=== PATIENT | female | born 1980 | race Caucasian/White ===

== ENCOUNTER 2019-06-23 09:48 | Outpatient (RCR) | payer BC, SELFPAY | END 2019-07-19 00:01 | LOC: WOUND 09:48 | PROVIDERS: Family Provider Nurse Practitioner; Visit Provider Surgery | DX: Z09 Encounter for follow-up examination after completed treatment for conditions other than malignant neoplasm (principal) ==

== ENCOUNTER → 2019-09-01 11:09 | Outpatient (BNVA) | payer BC, SELFPAY | PROVIDERS: Family Provider Nurse Practitioner; PCP Nurse Practitioner; Visit Provider Nurse Practitioner Psychiatric/Mental Health | DX: F90.0 Attention-deficit hyperactivity disorder, predominantly inattentive type (principal); F33.42 Major depressive disorder, recurrent, in full remission | CPT/HCPCS: 99213 ==

== ENCOUNTER → 2019-10-14 12:46 | Outpatient (BNVA) | payer BC, SELFPAY | PROVIDERS: Family Provider Nurse Practitioner; PCP Nurse Practitioner; Visit Provider Obstetrics & Gynecology | DX: N92.1 Excessive and frequent menstruation with irregular cycle (principal) | CPT/HCPCS: 84146; 84439; 84443 ==

== ENCOUNTER → 2019-11-29 07:55 | Outpatient (BNVA) | payer BC, SELFPAY | PROVIDERS: Family Provider Nurse Practitioner; PCP Nurse Practitioner; Visit Provider Nurse Practitioner Psychiatric/Mental Health | DX: F33.42 Major depressive disorder, recurrent, in full remission (principal); F90.0 Attention-deficit hyperactivity disorder, predominantly inattentive type | CPT/HCPCS: 99212 ==

== ENCOUNTER → 2020-01-09 19:21 | Outpatient (BNVA) | payer BC, SELFPAY | PROVIDERS: Family Provider Nurse Practitioner; PCP Nurse Practitioner; Visit Provider Nurse Practitioner Family | DX: N89.8 Other specified noninflammatory disorders of vagina (principal) | CPT/HCPCS: 87491; 87591; 87661 ==

== ENCOUNTER → 2020-01-17 18:31 | Outpatient (BNVA) | payer BC, SELFPAY | PROVIDERS: Family Provider Nurse Practitioner; PCP Nurse Practitioner; Visit Provider Nurse Practitioner | DX: Z20.2 Contact with and (suspected) exposure to infections with a predominantly sexual mode of transmission (principal) | CPT/HCPCS: 87491; 87591 ==

== ENCOUNTER → 2020-01-18 09:51 | Outpatient (BNVA) | payer BC, SELFPAY | PROVIDERS: Family Provider Nurse Practitioner; PCP Nurse Practitioner; Visit Provider Family Medicine | DX: Z13.6 Encounter for screening for cardiovascular disorders (principal) | CPT/HCPCS: 80053; 80061; 85025 ==

== ENCOUNTER → 2020-02-23 09:30 | Outpatient (BNVA) | payer BC, SELFPAY | PROVIDERS: Family Provider Nurse Practitioner; PCP Nurse Practitioner; Visit Provider Nurse Practitioner Psychiatric/Mental Health | DX: F33.42 Major depressive disorder, recurrent, in full remission (principal); F90.0 Attention-deficit hyperactivity disorder, predominantly inattentive type | CPT/HCPCS: G0463 ==

== ENCOUNTER → 2020-04-06 10:11 | Outpatient (BNVA) | payer BC, SELFPAY | PROVIDERS: Family Provider Nurse Practitioner; PCP Nurse Practitioner; Visit Provider Obstetrics & Gynecology | DX: Z12.4 Encounter for screening for malignant neoplasm of cervix (principal) | CPT/HCPCS: 88175 ==

== ENCOUNTER 2020-05-03 11:28 | Outpatient (CLI) | payer BC, SELFPAY ==
--- NOTE | 2020-05-03 11:36 | XR_ITS ---
WS: [id number] SHOULDER LEFT TECHNIQUE: 3 views of the left shoulder CLINICAL INFORMATION: chronic left shoulder pain COMPARISON: None. FINDINGS: Normal acromioclavicular joint. Normal glenohumeral joint. Acromion is normal in appearance. Normal g lenoid. No evidence of acute fracture dislocation. XR/XR shoulder LT min 2V* [id number] IMPRESSION: Normal left shoulder.
== END 2020-05-03 11:29 | disposition home or self-care (01) ==
PROVIDERS: Family Provider Family Medicine; PCP Family Medicine; Visit Provider Family Medicine
DX: M25.512 Pain in left shoulder (principal); G89.29 Other chronic pain; M79.641 Pain in right hand; M79.642 Pain in left hand
CPT/HCPCS: 73030; 80053; 85025; 85651; 86038; 86140; 86431

== ENCOUNTER → 2020-05-28 07:59 | Outpatient (BNVA) | payer BC, SELFPAY | PROVIDERS: Family Provider Family Medicine; PCP Family Medicine; Visit Provider Nurse Practitioner Psychiatric/Mental Health | DX: F33.42 Major depressive disorder, recurrent, in full remission (principal); F90.0 Attention-deficit hyperactivity disorder, predominantly inattentive type | CPT/HCPCS: G0463 ==

== ENCOUNTER → 2020-06-25 14:08 | Outpatient (BNVA) | payer BC, SELFPAY | PROVIDERS: Family Provider Family Medicine; PCP Family Medicine; Visit Provider Internal Medicine | DX: M79.641 Pain in right hand (principal); M79.642 Pain in left hand; Z11.59 Encounter for screening for other viral diseases; Z79.899 Other long term (current) drug therapy | CPT/HCPCS: 99204 ==

== ENCOUNTER 2020-06-25 15:16 | Outpatient (CLI) | payer BC, SELFPAY ==
--- NOTE | 2020-06-25 15:47 | XRR_ITS ---
PROCEDURE INFORMATION: Exam: XR Left Hand Exam date and time: 06/25/2020 3:47 PM Age: 40 years old Clinical indication: Pain; Hand; Bilateral; Additional info: M79.643 - pain in unspecified hand TECHNIQUE: Imaging protocol: XR Left hand. Views: 3 or more views. COMPARISON: No relevant prior studies available. FINDINGS: Bones/joints: Negative for acute bony abnormality. Soft tissues: Normal. XR/XR hand LT 2V [id number] IMPRESSION: No acute findings.
--- NOTE | 2020-06-25 15:47 | XRR_ITS ---
PROCEDURE INFORMATION: Exam: XR Right Elbow Exam date and time: 06/25/2020 3:47 PM Age: 40 years old Clinical indication: Pain; Elbow; Right; Additional info: M79.643 - pain in unspecified hand TECHNIQUE: Imaging protocol: XR Right elbow. Views: 1 or 2 views. COMPARISON: No relevant prior studies available. FINDINGS: Bones/joints: There is dislocation and subluxation of the elbow joint. No acute fractures are seen. Soft tissues: Unremarkable XR/XR elbow RT 2V [id number] IMPRESSION: Dislocation and subluxation of the right elbow joint.
--- NOTE | 2020-06-25 15:47 | XRR_ITS ---
PROCEDURE INFORMATION: Exam: XR Right Hand Exam date and time: 06/25/2020 3:47 PM Age: 40 years old Clinical indication: Pain; Hand; Bilateral; Additional info: M79.643 - pain in unspecified hand TECHNIQUE: Imaging protocol: XR Right hand. Views: 1 or 2 views. COMPARISON: No relevant prior studies available. FINDINGS: Bones/joints: Negative for acute bony abnormality. Soft tissues: Normal. XR/XR hand RT 2V [id number] IMPRESSION: No acute findings.
== END 2020-06-25 15:17 | disposition home or self-care (01) ==
PROVIDERS: PCP Family Medicine; Visit Provider Internal Medicine
DX: M79.643 Pain in unspecified hand (principal); S53.101A Unspecified subluxation of right ulnohumeral joint, initial encounter; X58.XXXA Exposure to other specified factors, initial encounter
CPT/HCPCS: 36415; 73070; 73120; 82306; 82728; 83540; 84100; 86704; 86803; 86812; 87340

== ENCOUNTER → 2020-07-25 10:45 | Outpatient (BNVA) | payer BC, SELFPAY | PROVIDERS: PCP Family Medicine; Visit Provider Internal Medicine | DX: M79.641 Pain in right hand (principal); M79.642 Pain in left hand; R76.8 Other specified abnormal immunological findings in serum; S53.106A Unspecified dislocation of unspecified ulnohumeral joint, initial encounter; Y93.9 Activity, unspecified | CPT/HCPCS: 99213; 99214 ==

== ENCOUNTER → 2020-08-23 08:58 | Outpatient (BNVA) | payer BC, SELFPAY | PROVIDERS: PCP Family Medicine; Visit Provider Nurse Practitioner Psychiatric/Mental Health | DX: F33.42 Major depressive disorder, recurrent, in full remission (principal); F90.0 Attention-deficit hyperactivity disorder, predominantly inattentive type | CPT/HCPCS: 99213 ==

== ENCOUNTER → 2020-12-10 08:37 | Outpatient (BNVA) | payer BC, SELFPAY | PROVIDERS: PCP Family Medicine; Visit Provider Nurse Practitioner Psychiatric/Mental Health | DX: F33.42 Major depressive disorder, recurrent, in full remission (principal); F90.0 Attention-deficit hyperactivity disorder, predominantly inattentive type | CPT/HCPCS: 99213 ==

== ENCOUNTER → 2021-04-26 11:56 | Outpatient (BNVA) | payer BC, SELFPAY | PROVIDERS: PCP Family Medicine; Visit Provider Nurse Practitioner Family | DX: Z20.822 Contact with and (suspected) exposure to COVID-19 (principal) | CPT/HCPCS: 87426 ==

== ENCOUNTER 2021-04-29 12:53 | Emergency (ER) | payer BC, SELFPAY ==
[2021-04-29 13:19] VITALS: BP 118/76; PULSE 91; RESP 16; TEMP 37.2; O2SAT 97
--- NOTE | 2021-04-29 13:27 | XR_ITS ---
WS: [id number] PORTABLE CHEST HISTORY: COVID COMPARISON: None available. Ill-defined scattered opacifications throughout both lungs. No lobar collapse or dense consolidation. Slight elevation of the RIGHT hemidiaphragm. No pleural effusion or pneumothorax. Cardiac size: Normal. Mediastinum/Aorta: Normal mediastinum. No osseous abnormality seen. XR/XR chest 1V portable [id number] IMPRESSION: Mild scattered opacifications consistent with pneumonitis and Covid 19.
--- NOTE | 2021-04-29 14:33 | W.ED.COVID ---
HPI - COVID General: Chief Complaint: COVID symptoms Stated Complaint: covid, sob Time Seen by Provider: 04/29/21 14:26 Source: patient Mode of arrival: ambulatory Limitations: no limitations Triage information: Has fever, cough or shortness of breath. History of Present Illness: HPI Narrative: Patient is a nice 40-year-old female who presents to ED today stating she was told to come to the ED for a CXR to rule out pneumonia. Patient states she was diagnosed with COVID via a positive home test after having positive exposure approximately a week ago. She is roughly on day 8-9 of symptoms. [facility], albuterol, and steroids. She states she was told to go to urgent care to have a test performed as she would have to have a positive test on file to qualify for [facility]. Patient states she did this on 04/26 and did test positive. She tells me she is continuing to feel short of breath with exertion thus [facility] and [facility] told her to come to the ED for a CXR to rule out pneumonia. Her other COVID symptoms have almost fully resolved. MD complaint: known COVID positive Prior covid testing: yes, results known Prior testing date: 04/26/21 COVID 19 common symptoms: positive dyspnea (with exertion ); negative fever(s), chills, non-productive cough, productive cough, fatigue, body aches, headache(s), throat pain, nasal congestion, nausea, vomiting or diarrhea COVID 19 other sytmptoms: negative chest pain Onset (ago): day(s) Pertinent comorbid conditions: obesity Treatment prior to arrival: antibiotics, steroids and other (albuterol) COVID Results: SARS-CoV-2 Antigen (Rapid) Positive (Negative) H 04/26/21 11:56 04/26/21 Review of Systems Const: Denies: fever(s), chills, body aches, change in appetite, fatigue or malaise Eyes: Denies: change in vision or blurry vision ENMT: Denies: throat pain, odynophagia, nasal discharge or nasal congestion Card: Reports: lightheadedness (states she felt lightheaded in the shower yesterday) and dyspnea on exertion; Denies: chest pain, palpitations, irregular heart rhythm, edema, syncope or orthopnea Resp: Reports: dyspnea (with exertion ); Denies: productive cough, non-productive cough, hemoptysis or chest congestion GI: Denies: abdominal pain, nausea, vomiting or diarrhea Musc: Denies: neck pain, back pain, extremity pain or joint pain Skin/Breast: Denies: rash Neuro: Denies: headache(s), numbness in extremities, weakness in extremities or sensory changes PFS ED PFSH: Medical History (Updated 04/29/21 @ 15:14 by KARMA Rivas) Depression And possibly ADHD diagnosed in her 30s. She follows up with behavioral health care. Does not have a therapist. GERD (gastroesophageal reflux disease) Since her 20s controlled with medication. 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 Cadet PCOS (polycystic ovarian syndrome) Diagnosed in [address] Jurado [facility] Surgical History History of dilation and curettage (04/24/06) Missed . Performed by Dr. Jurado at [facility] in [place], [place]. History of incision and drainage (06/10/19) Right gluteal abscess. Performed by Dr. Shearer at [facility] History of loop electrical excision procedure (LEEP) (~2001) Family History Father Hypertension Hypercholesteremia Mother Hypertension Hypercholesteremia Thyroid disease Grandfather Diabetes maternal Denies family history of Colon cancer Ovarian cancer Heart disease Breast cancer Uterine cancer Stroke Social History Smoking and tobacco status: never smoked Alcohol intake: never Female Reproductive History: Date of last menstrual period: 07/05/19 Physical Exam Const: COMMON NORMALS: no acute distress, patient oriented x3, no limitations and alert GENERAL APPEARANCE: cooperative NUTRITIONAL APPEARANCE: obese ORIENTATION/CONSCIOUSNESS: Yes awake, Yes oriented to person, Yes oriented to place and Yes oriented to time Resp: COMMON NORMALS: normal respiratory effort and clear to auscultation bilaterally AUSCULTATION: clear to auscultation bilaterally Cardio: COMMON NORMALS: regular rate and regular rhythm RATE: regular rate RHYTHM: regular rhythm Neuro: COMMON NORMALS: patient oriented x3 SENSORIUM/ORIENTATION: Yes alert, Yes oriented to person, Yes oriented to place and Yes oriented to time Course Vital Signs: Vital signs: Vital Signs Temperature 99.1 F 04/29/21 15:14 Pulse Rate 88 04/29/21 15:14 Respiratory Rate 17 04/29/21 15:14 Blood Pressure 119/70 04/29/21 15:14 Pulse Oximetry 97 04/29/21 15:14 MDM - COVID MDM Narrative: Medical decision making narrative: Patient clinically is in no acute distress. She is not tachycardic, tachypneic febrile, or hypoxic. Lung sounds are CTA at this time. CXR does show scattered opacifications consistent with COVID-19 pneumonia. She is already on azithromycin, albuterol, and steroids. There is no indication to add any further medications at this time. Urgent care has already set her up for [facility] on Thursday. Unlikely she will get much benefit from this given that her symptoms started a week and a half ago. Return to ED precautions given. Imaging Data: CXR: Radiologist's impression: [place] [id number] [facility].[place], [place] [address]IUts ReportSigned Patient: Bridgett Schulte RUnit #: [id number]: [id number]#:[id number]/Sex: 40 / FADM Date: 04/29/21Loc: ERRoom/Bed:Attending Dr: Ordering Provider/Ordering MD: Marisol Belcher Date of Service: 04/29/21 Procedure(s): XR chest 1V portable [id number] Accession Number(s): [id number] Report Number: [id number] WS: [id number] PORTABLE CHEST HISTORY: COVID COMPARISON: None available. Ill-defined scattered opacifications throughout both lungs. No lobar collapse or dense consolidation. Slight elevation of the RIGHT hemidiaphragm. No pleural effusion or pneumothorax. Cardiac size: Normal. Mediastinum/Aorta: Normal mediastinum. No osseous abnormality seen. XR/XR chest 1V portable [id number] IMPRESSION: Mild scattered opacifications consistent with pneumonitis and Covid 19. Dictated By:Claudette Galindo DOSigned By:Claudette Galindo DOSigned Date/Time:04/29/21 1352DD/ 1352 COVID Results: SARS-CoV-2 Antigen (Rapid) Positive (Negative) H 04/26/21 11:56 04/26/21 Discharge Plan Discharge Patient Disposition: Home Clinical Impression: COVID-19 Condition: Stable Prescriptions: No Action omeprazole 20 mg capsule,delayed release(DR/EC) 20 mg PO DAILY RF: 0 nystatin 100,000 unit/gram powder 1 applic topical BID PRN (Reason: Yeast) Qty: 15 RF: 0 zinc 50 mg tablet 100 mg PO DAILY RF: 0 calcium carbonate-vitamin D3 [Calcium 600 with Vitamin D3] 600 mg(1,500mg) -500 unit capsule 2 cap PO DAILY RF: 0 multivitamin Tablet 1 tab PO DAILY RF: 0 lysine 1,000 mg tablet 1,000 mg PO ONCE RF: 0 Adult Probiotic 3 billion cell capsule 3,000 mmu cells PO ONCE RF: 0 ascorbate calcium (vitamin C) 500 mg tablet 1 gm PO DAILY RF: 0 docusate sodium [Stool Softener] 100 mg capsule 100 mg PO BID PRNRF: 0 magnesium 30 mg tablet 500 mg PO DAILY RF: 0 duloxetine 30 mg capsule,delayed release(DR/EC) 60 mg PO .q am Qty: 60 RF: 1 methylphenidate HCl [Concerta] 27 mg tablet extended release 24hr 27 mg PO QAM 30 Days Qty: 30 RF: 0 methylphenidate HCl [Concerta] 27 mg tablet extended release 24hr 27 mg PO QAM 30 Days Qty: 30 RF: 0 medroxyprogesterone 10 mg tablet 10 mg PO DAILY PRN (Reason: metrorrhagia) Qty: 10 RF: 12 meloxicam 15 mg tablet 15 mg PO DAILY Qty: 30 RF: 2 acyclovir 400 mg tablet 400 mg PO BID Qty: 180 RF: 1 Discharge Orders: Discharge ED (Routine); Ordered 04/29/21 Ordered By: Marisol Belcher Referrals: Melany Cadet DO [Primary Care Provider] - Patient Instructions: COVID-19 (Coronavirus Disease 2019) (ED) Coding Level of Care Code ED [employer] for Helder Roberts
[2021-04-29 15:14] VITALS: BP 119/70; PULSE 88; RESP 17; TEMP 37.3; O2SAT 97
== END 2021-04-29 15:24 | disposition home or self-care (01) ==
PROVIDERS: Emergency Provider Physician Assistant; PCP Family Medicine
DX: U07.1 COVID-19 (principal)
CPT/HCPCS: 71045; 99283

== ENCOUNTER 2021-04-30 09:14 | Inpatient (IN) | payer BC, SELFPAY ==
[2021-04-30] VITALS (11 sets, daily range): BP systolic 91–157; BP diastolic 55–82; PULSE 73–123; RESP 17–22; TEMP 36.7–38.7; O2SAT 90–96; BMI 38.2
--- NOTE | 2021-04-30 12:05 | XR_ITS ---
WS: [id number] XR chest 1V portable [id number] REASON FOR EXAM: worsening COVID symptoms FINDINGS: Compared to the previous examination of 04/29/2021, the extent and density of the bilateral pulmonary infiltrates has increased somewhat. No other interval change or new finding is noted. XR/XR chest 1V portable [id number] IMPRESSION: Mild/moderate degree of worsening of the bilateral pulmonary infiltrates.
--- NOTE | 2021-04-30 12:05 | ED_ITS ---
Documented by User: KARMA Rivas 04/30/21 16:46 HPI - COVID General: Chief Complaint: COVID symptoms Stated Complaint: Fever, Weakness, Fatique, Time Seen by Provider: 04/30/21 09:21 Source: patient Mode of arrival: wheelchair Limitations: no limitations Triage information: Has fever, cough or shortness of breath . No known COVID + exposure last 14 days History of Present Illness: HPI Narrative: Patient is a 40-year-old female who presents to ED today for reevaluation for COVID symptoms. Patient was seen here yesterday and diagnosed with mild viral pneumonia consistent with her COVID diagnosis. Patient was not tachycardic, hypoxic, or febrile at that visit. She states today she ran a fever of 102 yesterday evening and states she almost passed out when she got up and ambulated this morning. She states she checked her oxygen at home and it was in the mid to upper 80s. She states she feels weak. MD complaint: known COVID positive Prior covid testing: yes, results known COVID 19 common symptoms: positive fever(s), dyspnea and fatigue; negative non- productive cough, productive cough, headache(s), throat pain, nasal congestion, nausea, vomiting or diarrhea COVID 19 other sytmptoms: positive other concerning symptoms (weakness); negative chest pain Onset (ago): hour(s) Severity: moderate Pertinent comorbid conditions: obesity Treatment prior to arrival: antibiotics, steroids and other (albuterol) COVID Results: SARS-CoV-2 Antigen (Rapid) Positive (Negative) H 04/26/21 11:56 04/26/21 Review of Systems Const: Reports: fever(s) and fatigue Eyes: Denies: change in vision or blurry vision ENMT: Denies: throat pain, odynophagia, nasal discharge or nasal congestion Card: Reports: lightheadedness, pre-syncope and dyspnea on exertion; Denies: chest pain, palpitations, irregular heart rhythm, edema or swelling of feet/ankles Resp: Reports: dyspnea; Denies: productive cough, non-productive cough, wheezing, hemoptysis or chest congestion GI: Denies: abdominal pain, nausea, vomiting or diarrhea Musc: Denies: neck pain, back pain, extremity pain or joint pain Skin/Breast: Denies: rash Neuro: Denies: headache(s), numbness in extremities, weakness in extremities or sensory changes PFSH ED PFSH: Medical History (Updated 04/30/21 @ 16:46 by KARMA Rivas) Depression And possibly ADHD diagnosed in her 30s. She follows up with behavioral health care. Does not have a therapist. GERD (gastroesophageal reflux disease) Since her 20s controlled with medication. 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 Cadet PCOS (polycystic ovarian syndrome) Diagnosed in [address] Jurado Psychiatric care Surgical History History of dilation and curettage (04/24/06) Missed . Performed by Dr. Jurado at [facility] in [place], [place]. History of incision and drainage (06/10/19) Right gluteal abscess. Performed by Dr. Shearer at [facility] History of loop electrical excision procedure (LEEP) (~2001) Family History Father Hypertension Hypercholesteremia Mother Hypertension Hypercholesteremia Thyroid disease Grandfather Diabetes maternal Denies family history of Colon cancer Ovarian cancer Heart disease Breast cancer Uterine cancer Stroke Social History Smoking and tobacco status: never smoked Alcohol intake: never Female Reproductive History: Date of last menstrual period: 07/05/19 Physical Exam Const: COMMON NORMALS: no acute distress, patient oriented x3, no limitations and alert GENERAL APPEARANCE: cooperative NUTRITIONAL APPEARANCE: obese ORIENTATION/CONSCIOUSNESS: Yes awake, Yes oriented to person, Yes oriented to place and Yes oriented to time OTHER: looks like she doesn't feel well; mildly febrile HENMT: COMMON NORMALS: normocephalic and atraumatic HEAD & SCALP: normocephalic and atraumatic Resp: COMMON NORMALS: normal respiratory effort and clear to auscultation bilaterally AUSCULTATION: clear to auscultation bilaterally Cardio: COMMON NORMALS: regular rhythm RATE: tachycardic RHYTHM: regular rhythm Neuro: LISA COMA SCALE: document GCS findings Dale coma scale eye opening: Spontaneous Dale coma scale verbal response: Orientated Dale coma scale motor response: Obey commands Dale coma scale total score: 15 COMMON NORMALS: patient oriented x3 SENSORIUM/ORIENTATION: Yes alert, Yes oriented to person, Yes oriented to place and Yes oriented to time Skin: COMMON NORMALS: no rashes or lesions noted GENERAL SKIN EXAM: no rashes or lesions noted Course Consultations: Consultation #1: Dr. Gaines-accepts admit to OBS Vital Signs: Vital signs: Vital Signs Temperature 99.5 F 04/30/21 15:53 Pulse Rate 106 H 04/30/21 15:53 Respiratory Rate 20 H 04/30/21 15:53 Blood Pressure 91/58 04/30/21 15:53 Pulse Oximetry 91 04/30/21 15:53 MDM - COVID MDM Narrative: Medical decision making narrative: Patient is a 40-year-old who returns to the ED for reevaluation of COVID symptoms. I saw her myself yesterday. Patient yesterday appeared in no acute distress with normal vital signs. She had mild viral pneumonia and was sent home with recommendations for conservative treatment. Patient returns less than 24 hours with fairly significant worsening of her pneumonia. She arrived today tachycardic and febrile and reporting hypoxia at home with ambulation. She has not required oxygen here. Her labs overall are consistent with her COVID diagnosis but do not appear markedly abnormal. I think given the fact the patient is on day 9 of symptoms and her rapid progression over the past 24 hours, she would most likely benefit from hospitalization. Spoke to hospitalist Dr. Gaines who agrees and recommends admission to obs. Spoke to Dr. Thomas who is also evaluated patient and will place admit orders. Lab Data: Labs: Lab Results 04/30/21 04/30/21 04/30/21 13:53 14:50 14:50 WBC 11.2 10^3/uL H 10 ^3/uL (4.0-10.0) RBC 4.63 10^6/uL 10^6 /uL (4.1-5.3) Hgb 13.7 g/dL g/dL (11.5-15.3) Hct 43.1 % % (37.0-47.0) MCV 93.1 fl fl (81-99) MCH 29.6 pg pg (28.0-34.0) MCHC 31.8 g/dL g/dL (30.0-36.0) RDW 14.2 % % (12.1-15.1) Plt Count 220 10^3/cmm 10^3 /cmm (130-400) MPV 9.7 fL fL (7.4-10.4) Neut % (Auto) 74.2 % % Lymph % (Auto) 19.6 % % Davison % (Auto) 5.7 % % Eos % (Auto) 0.0 % % Baso % (Auto) 0.1 % % Neut # (Auto) 8.31 10^3/uL H 10 ^3/uL (1.8-7.7) Lymph # (Auto) 2.2 10^3/uL 10^3/ uL (0.8-4.8) Davison # (Auto) 0.6 10^3/uL 10^3/ uL (0.2-0.9) Eos # (Auto) 0.0 10^3/uL 10^3/ uL (0.0-0.8) Baso # (Auto) 0.0 10^3/uL 10^3/ uL (0.0-0.1) Nucleated RBC % (a uto) 0 % % Nucleated RBCs # 0.0 /100WBC /100W BC PT 14.60 SECONDS SEC ONDS (12.1-14.9) INR 1.10 (0.8-1.2) APTT 29.9 SECONDS SECO NDS (23.9-36.7) Fibrinogen 693 mg/dL H mg/dL (174-498) D-Dimer 0.39 ug/mIFEU ug/ mIFEU (0-0.59) Specimen Type Arterial Sample Site Brachial, right ABG pH 7.51 H (7.35-7.45) ABG pCO2 29.9 mmHg L mmHg (35-45) ABG pO2 61.5 mmHg L mmHg (80.0-100.0) ABG HCO3 24.0 mmol/L mmol/ L (22-26) ABG Base Excess 1.9 mmol/L mmol/L (-2.0-2.0) Josh Test Pos Hematocrit 43.1 % % (37-47) O2 Delivery Device Room air FiO2 21.0 % % Specimen Drawn By [employer] Enroller ID Bd Sodium Potassium Chloride Carbon Dioxide Anion Gap BUN Creatinine GFR Calculation Glucose Calculated Osmolal ity Lactic Acid Calcium Ferritin Total Bilirubin AST ALT Alkaline Phosphata se C-Reactive Protein NT-Pro-B Natriuret Pep Total Protein Albumin Globulin Procalcitonin HCG, Qual 04/30/21 04/30/21 04/30/21 14:50 14:50 14:50 WBC RBC Hgb Hct MCV MCH MCHC RDW Plt Count MPV Neut % (Auto) Lymph % (Auto) Davison % (Auto) Eos % (Auto) Baso % (Auto) Neut # (Auto) Lymph # (Auto) Davison # (Auto) Eos # (Auto) Baso # (Auto) Nucleated RBC % (a uto) Nucleated RBCs # PT INR APTT Fibrinogen D-Dimer Specimen Type Sample Site ABG pH ABG pCO2 ABG pO2 ABG HCO3 ABG Base Excess Josh Test Hematocrit O2 Delivery Device FiO2 Specimen Drawn By Enroller ID Sodium 136 mmol/L mmol/L (136-145) Potassium 4.3 mmol/L mmol/L (3.5-5.1) Chloride 101 mmol/L mmol/L (98-107) Carbon Dioxide 23 mmol/L mmol/L (22-29) Anion Gap 16.3 (5-19) BUN 17 mg/dL mg/dL (6-20) Creatinine 0.8 mg/dL mg/dL (0.5-0.9) GFR Calculation 79.9 mL/min L mL/ min (90-130) Glucose 101 mg/dL mg/dL (65-115) Calculated Osmolal ity 284 mOsm/kg L mOs m/kg (285-295) Lactic Acid 1.9 mmol/L mmol/L (0.5-2.2) Calcium 8.7 mg/dL mg/dL (8.5-10.5) Ferritin 654 ng/mL H ng/mL (15-150) Total Bilirubin 0.3 mg/dL mg/dL (0.15-1.2) AST 34 U/L H U/L (0-32) ALT 33 U/L U/L (0-33) Alkaline Phosphata se 76 IU/L IU/L (35-105) C-Reactive Protein 111.5 mg/L H mg/L (0.0-4.9) NT-Pro-B Natriuret Pep 246 pg/mL H pg/mL (0-125) Total Protein 7.4 g/dL g/dL (6.6-8.7) Albumin 3.6 g/dL g/dL (3.5-5.2) Globulin 3.8 g/dL g/dL (1.3-4.6) Procalcitonin 0.63 ng/mL H ng/m L (0-0.5) HCG, Qual Negative (Negative) Imaging Data: CXR: Radiologist's impression: [address] [address] XRay Report Signed Patient: Bridgett Schulte Unit #: [id number] : 1980 Age/Sex: 40 / F ADM Date: 04/30/21 Loc: ER Room/Bed: Attending Dr: Ordering Provider/Ordering MD: Marisol Belcher Date of Service: 04/30/21 Procedure(s): XR chest 1V portable [id number] Accession Number(s): [id number] Report Number: [id number] WS: [id number] XR chest 1V portable [id number] REASON FOR EXAM: worsening COVID symptoms FINDINGS: Compared to the previous examination of 04/29/2021, the extent and density of the bilateral pulmonary infiltrates has increased somewhat. No other interval change or new finding is noted. XR/XR chest 1V portable [id number] IMPRESSION: Mild/moderate degree of worsening of the bilateral pulmonary infiltrates. Dictated By: Musa Chauhan Jr, MD Signed By: Musa Chauhan Jr, MD Signed Date/Time: 04/30/21 1236 DD/ 1234 COVID Results: SARS-CoV-2 Antigen (Rapid) Positive (Negative) H 04/26/21 11:56 04/26/21 Discharge Plan Discharge Patient Disposition: Placed in Observation Clinical Impression: Pneumonia due to 2019-nCoV Condition: Stable Prescriptions: No Action omeprazole 20 mg capsule,delayed release(DR/EC) 20 mg PO DAILY RF: 0 nystatin 100,000 unit/gram powder 1 applic topical BID PRN (Reason: Yeast) Qty: 15 RF: 0 zinc 50 mg tablet 100 mg PO DAILY RF: 0 calcium carbonate-vitamin D3 [Calcium 600 with Vitamin D3] 600 mg(1,500mg) - 500 unit capsule 2 cap PO DAILY RF: 0 multivitamin Tablet 1 tab PO DAILY RF: 0 lysine 1,000 mg tablet 1,000 mg PO ONCE RF: 0 Adult Probiotic 3 billion cell capsule 3,000 mmu cells PO ONCE RF: 0 ascorbate calcium (vitamin C) 500 mg tablet 1 gm PO DAILY RF: 0 docusate sodium [Stool Softener] 100 mg capsule 100 mg PO BID PRNRF: 0 magnesium 30 mg tablet 500 mg PO DAILY RF: 0 duloxetine 30 mg capsule,delayed release(DR/EC) 60 mg PO .q am Qty: 60 RF: 1 methylphenidate HCl [Concerta] 27 mg tablet extended release 24hr 27 mg PO QAM 30 Days Qty: 30 RF: 0 methylphenidate HCl [Concerta] 27 mg tablet extended release 24hr 27 mg PO QAM 30 Days Qty: 30 RF: 0 medroxyprogesterone 10 mg tablet 10 mg PO DAILY PRN (Reason: metrorrhagia) Qty: 10 RF: 12 meloxicam 15 mg tablet 15 mg PO DAILY Qty: 30 RF: 2 acyclovir 400 mg tablet 400 mg PO BID Qty: 180 RF: 1 Referrals: Melany Cadet DO [Primary Care Provider] - Patient Instructions: Opioid Safety Coding Level of Care Code ED Behavioral Health Technician for Chg Fwd Exam Detailed Documented by User: Deon Thomas DO 04/30/21 16:45 HPI - COVID General: Chief Complaint: COVID symptoms Stated Complaint: Fever, Weakness, Fatique, Time Seen by Provider: 04/30/21 09:21 COVID Results: SARS-CoV-2 Antigen (Rapid) Positive (Negative) H 04/26/21 11:56 04/26/21 PFS ED PFSH: Medical History (Updated 04/30/21 @ 16:46 by KARMA Rivas) Depression And possibly ADHD diagnosed in her 30s. She follows up with behavioral health care. Does not have a therapist. GERD (gastroesophageal reflux disease) Since her 20s controlled with medication. 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 Cadet PCOS (polycystic ovarian syndrome) Diagnosed in [address] Jurado Psychiatric care Surgical History History of dilation and curettage (04/24/06) Missed . Performed by Dr. Jurado at [facility] in [place], [place] History of incision and drainage (06/10/19) Right gluteal abscess. Performed by Dr. Shearer at [facility] History of loop electrical excision procedure (LEEP) (~2001) Family History Father Hypertension Hypercholesteremia Mother Hypertension Hypercholesteremia Thyroid disease Grandfather Diabetes maternal Denies family history of Colon cancer Ovarian cancer Heart disease Breast cancer Uterine cancer Stroke Social History Smoking and tobacco status: never smoked Alcohol intake: never Course Vital Signs: Vital signs: Vital Signs Temperature 99.5 F 04/30/21 15:53 Pulse Rate 106 H 04/30/21 15:53 Respiratory Rate 20 H 04/30/21 15:53 Blood Pressure 91/58 04/30/21 15:53 Pulse Oximetry 91 04/30/21 15:53 MDM - COVID MDM Narrative: Medical decision making narrative: Reviewed discussed case with Marisol Belcher. Agree with assessment and plan. Patient has shown progression of her disease. She does have fairly significant risk factors with her obesity. She is on day 8. She has D satting in the department with activity. Working to go ahead and put her on observation orders are written. Lab Data: Labs: Lab Results 04/30/21 04/30/21 04/30/21 13:53 14:50 14:50 WBC 11.2 10^3/uL H 10 ^3/uL (4.0-10.0) RBC 4.63 10^6/uL 10^6 /uL (4.1-5.3) Hgb 13.7 g/dL g/dL (11.5-15.3) Hct 43.1 % % (37.0-47.0) MCV 93.1 fl fl (81-99) MCH 29.6 pg pg (28.0-34.0) MCHC 31.8 g/dL g/dL (30.0-36.0) RDW 14.2 % % (12.1-15.1) Plt Count 220 10^3/cmm 10^3 /cmm (130-400) MPV 9.7 fL fL (7.4-10.4) Neut % (Auto) 74.2 % % Lymph % (Auto) 19.6 % % Davison % (Auto) 5.7 % % Eos % (Auto) 0.0 % % Baso % (Auto) 0.1 % % Neut # (Auto) 8.31 10^3/uL H 10 ^3/uL (1.8-7.7) Lymph # (Auto) 2.2 10^3/uL 10^3/ uL (0.8-4.8) Davison # (Auto) 0.6 10^3/uL 10^3/ uL (0.2-0.9) Eos # (Auto) 0.0 10^3/uL 10^3/ uL (0.0-0.8) Baso # (Auto) 0.0 10^3/uL 10^3/ uL (0.0-0.1) Nucleated RBC % (a uto) 0 % % Nucleated RBCs # 0.0 /100WBC /100W BC PT 14.60 SECONDS SEC ONDS (12.1-14.9) INR 1.10 (0.8-1.2) APTT 29.9 SECONDS SECO NDS (23.9-36.7) Fibrinogen 693 mg/dL H mg/dL (174-498) D-Dimer 0.39 ug/mIFEU ug/ mIFEU (0-0.59) Specimen Type Arterial Sample Site Brachial, right ABG pH 7.51 H (7.35-7.45) ABG pCO2 29.9 mmHg L mmHg (35-45) ABG pO2 61.5 mmHg L mmHg (80.0-100.0) ABG HCO3 24.0 mmol/L mmol/ L (22-26) ABG Base Excess 1.9 mmol/L mmol/L (-2.0-2.0) Josh Test Pos Hematocrit 43.1 % % (37-47) O2 Delivery Device Room air FiO2 21.0 % % Specimen Drawn By [employer] Enroller ID Bd Sodium Potassium Chloride Carbon Dioxide Anion Gap BUN Creatinine GFR Calculation Glucose Calculated Osmolal ity Lactic Acid Calcium Ferritin Total Bilirubin AST ALT Alkaline Phosphata se C-Reactive Protein NT-Pro-B Natriuret Pep Total Protein Albumin Globulin Procalcitonin HCG, Qual 04/30/21 04/30/21 04/30/21 14:50 14:50 14:50 WBC RBC Hgb Hct MCV MCH MCHC RDW Plt Count MPV Neut % (Auto) Lymph % (Auto) Davison % (Auto) Eos % (Auto) Baso % (Auto) Neut # (Auto) Lymph # (Auto) Davison # (Auto) Eos # (Auto) Baso # (Auto) Nucleated RBC % (a uto) Nucleated RBCs # PT INR APTT Fibrinogen D-Dimer Specimen Type Sample Site ABG pH ABG pCO2 ABG pO2 ABG HCO3 ABG Base Excess Josh Test Hematocrit O2 Delivery Device FiO2 Specimen Drawn By Enroller ID Sodium 136 mmol/L mmol/L (136-145) Potassium 4.3 mmol/L mmol/L (3.5-5.1) Chloride 101 mmol/L mmol/L (98-107) Carbon Dioxide 23 mmol/L mmol/L (22-29) Anion Gap 16.3 (5-19) BUN 17 mg/dL mg/dL (6-20) Creatinine 0.8 mg/dL mg/dL (0.5-0.9) GFR Calculation 79.9 mL/min L mL/ min (90-130) Glucose 101 mg/dL mg/dL (65-115) Calculated Osmolal ity 284 mOsm/kg L mOs m/kg (285-295) Lactic Acid 1.9 mmol/L mmol/L (0.5-2.2) Calcium 8.7 mg/dL mg/dL (8.5-10.5) Ferritin 654 ng/mL H ng/mL (15-150) Total Bilirubin 0.3 mg/dL mg/dL (0.15-1.2) AST 34 U/L H U/L (0-32) ALT 33 U/L U/L (0-33) Alkaline Phosphata se 76 IU/L IU/L (35-105) C-Reactive Protein 111.5 mg/L H mg/L (0.0-4.9) NT-Pro-B Natriuret Pep 246 pg/mL H pg/mL (0-125) Total Protein 7.4 g/dL g/dL (6.6-8.7) Albumin 3.6 g/dL g/dL (3.5-5.2) Globulin 3.8 g/dL g/dL (1.3-4.6) Procalcitonin 0.63 ng/mL H ng/m L (0-0.5) HCG, Qual Negative (Negative) COVID Results: SARS-CoV-2 Antigen (Rapid) Positive (Negative) H 04/26/21 11:56 04/26/21 Discharge Plan Discharge Patient Disposition: Placed in Observation Clinical Impression: Pneumonia due to 2019-nCoV Condition: Stable Prescriptions: No Action omeprazole 20 mg capsule,delayed release(DR/EC) 20 mg PO DAILY RF: 0 nystatin 100,000 unit/gram powder 1 applic topical BID PRN (Reason: Yeast) Qty: 15 RF: 0 zinc 50 mg tablet 100 mg PO DAILY RF: 0 calcium carbonate-vitamin D3 [Calcium 600 with Vitamin D3] 600 mg(1,500mg) - 500 unit capsule 2 cap PO DAILY RF: 0 multivitamin Tablet 1 tab PO DAILY RF: 0 lysine 1,000 mg tablet 1,000 mg PO ONCE RF: 0 Adult Probiotic 3 billion cell capsule 3,000 mmu cells PO ONCE RF: 0 ascorbate calcium (vitamin C) 500 mg tablet 1 gm PO DAILY RF: 0 docusate sodium [Stool Softener] 100 mg capsule 100 mg PO BID PRNRF: 0 magnesium 30 mg tablet 500 mg PO DAILY RF: 0 duloxetine 30 mg capsule,delayed release(DR/EC) 60 mg PO .q am Qty: 60 RF: 1 methylphenidate HCl [Concerta] 27 mg tablet extended release 24hr 27 mg PO QAM 30 Days Qty: 30 RF: 0 methylphenidate HCl [Concerta] 27 mg tablet extended release 24hr 27 mg PO QAM 30 Days Qty: 30 RF: 0 medroxyprogesterone 10 mg tablet 10 mg PO DAILY PRN (Reason: metrorrhagia) Qty: 10 RF: 12 meloxicam 15 mg tablet 15 mg PO DAILY Qty: 30 RF: 2 acyclovir 400 mg tablet 400 mg PO BID Qty: 180 RF: 1 Referrals: Melany Cadet DO [Primary Care Provider] - Patient Instructions: Opioid Safety Coding Level of Care Code ED Behavioral Health Technician for Chg Fwd Exam Detailed
--- NOTE | 2021-04-30 12:37 | ECG_ITS ---
[facility] Test Date: 2021-04-30 Pat Name: Bridgett Schulte Department: Room: Gender: Female Prosthetics Technician: : 1980 Requested By: Marisol Belcher Order Number: [id number] Patel MD: Nahed Hutchins M.D. Measurements Intervals [place] Rate: 109 P: 22 [place]: 142 QRS: 0 QRSD: 82 T: 48 QT: 299 QTc: 403 Interpretive Statements SINUS TACHYCARDIA POSSIBLE LEFT ATRIAL ENLARGEMENT [-0.1mV P-WAVE IN V1/V2] POSSIBLE LEFT VENTRICULAR HYPERTROPHY [VOLTAGE CRITERIA PLUS LAE OR QRS WIDENING] No previous ECG available for comparison Electronically Signed On 04-30-2021 22:08:22 CDT by Nahed Hutchins M.D. [email or web address]
[2021-04-30] MEDS: acetaminophen 500 mg Tablet 1000 MG PO (14:00)
[2021-04-30 14:04] LABS: ABG PCO2 29.9 mmHg (35-45); ABG PH Result 7.51 (7.35-7.45); Arterial Blood Gas Hematocrit 43.1 % (37-47); Base Excess ABG 1.9 mmol/L (-2.0-2.0); Blood Gas Allen Test Pos; Blood Gas Operator Identificat BD; Blood Gas Sample Site Brachial, right; Blood Gas Sample Type Arterial; PO2 ABG 61.5 mmHg (80.0-100.0)
[2021-04-30 14:35] LABS: Blood Gas Drawn By LUNSA
[2021-04-30] MEDS: dexamethasone 4 mg/mL INJ 6 MG IVP ×2 (14:55→18:32)
[2021-04-30 15:01] LABS: Basophils % 0.1 %; Hematocrit 43.1 % (37.0-47.0); Hemoglobin 13.7 g/dL (11.5-15.3); Lymphocytes # 2.2 10^3/uL (0.8-4.8); Lymphocytes % 19.6 %; Mean Corpuscular HGB Conc 31.8 g/dL (30.0-36.0); Mean Corpuscular Hemoglobin 29.6 pg (28.0-34.0); Mean Corpuscular Volume 93.1 fl (81-99); Mean Platelet Volume 9.7 fL (7.4-10.4); Monocytes # 0.6 10^3/uL (0.2-0.9); Monocytes % 5.7 %; Neutrophils # 8.31 10^3/uL (1.8-7.7); Neutrophils % 74.2 %; Nucleated Red Blood Cells % 0 %; Platelet Count 220 10^3/cmm (130-400); Red Blood Count 4.63 10^6/uL (4.1-5.3); Red Cell Distribution Width 14.2 % (12.1-15.1); White Blood Count 11.2 10^3/uL (4.0-10.0)
[2021-04-30 15:36] LABS: HCG, Serum Qual Negative (Negative)
[2021-04-30 15:39] LABS: Partial Thromboplastin Time 29.9 SECONDS (23.9-36.7)
[2021-04-30 15:42] LABS: Fibrinogen 693 mg/dL (174-498)
[2021-04-30 15:44] LABS: Lactic Sepsis W/Reflex 1.9 mmol/L (0.5-2.2)
[2021-04-30 15:45] LABS: D Dimer 0.39 ug/mIFEU (0-0.59)
[2021-04-30 15:56] LABS: NT Pro B Type Natriuretic Pept 246 pg/mL (0-125); Procalcitonin 0.63 ng/mL (0-0.5)
[2021-04-30 16:07] LABS: Alanine Aminotransferase 33 U/L (0-33); Albumin Level 3.6 g/dL (3.5-5.2); Alkaline Phosphatase 76 IU/L (35-105); Anion Gap 16.3 (5-19); Aspartate Amino Transferase 34 U/L (0-32); Blood Urea Nitrogen 17 mg/dL (6-20); C Reactive Protein 111.5 mg/L (0.0-4.9); Calcium 8.7 mg/dL (8.5-10.5); Carbon Dioxide 23 mmol/L (22-29); Chloride 101 mmol/L (98-107); Ferritin 654 ng/mL (15-150); Globulin 3.8 g/dL (1.3-4.6); Glomerular Filtration Rate 79.9 mL/min (90-130); Glucose 101 mg/dL (65-115); Osmolality Calculated 284 mOsm/kg (285-295); Potassium 4.3 mmol/L (3.5-5.1); Sodium 136 mmol/L (136-145); Total Bilirubin 0.3 mg/dL (0.15-1.2); Total Protein 7.4 g/dL (6.6-8.7)
--- NOTE | 2021-04-30 16:41 | P.HP_ITS ---
Providers/Chief Complaint Primary Care Provider: Melany Cadet DO Chief Complaint: Fever, Weakness, Fatique, History of Present Illness Patient is a 40-year-old female with past medical history of ADHD, depression, GERD, herpes genitalia who presented to the ER today for Covid symptoms. Of note patient was seen in the ER yesterday and diagnosed with mild viral pneumonia consistent with her Covid diagnosis. Patient reports having a fever of 102 yesterday and that she almost passed out when she got up this morning. She states she checked her oxygen at home it was in the mid to upper 80s. He states she feels weak. When seen by medicine patient states that her primary care doctor is Dr. Cadet and she has been short of breath when walking around. He denies chest pain, abdominal pain, nausea, vomiting, diarrhea, numbness, headache. She is aware that her Covid test is positive. She states she was given azithromycin and dexamethasone 6 mg orally for 5 days to take as an outpatient and she has 2 tablets left. Denies smoking, does drink alcohol socially. Review of Systems General: Reports: 10 or more systems reviewed and unremarkable except in HPI and below Medications/Allergies Home Medications Medication Instructions Recorded Confirmed Last Taken Type omeprazole 20 mg capsule,delayed 20 mg PO DAILY 05/03/20 04/30/21 04/29/21 History release docusate sodium 100 mg capsule 200 mg PO DAILY 05/25/20 04/30/21 Unknown History acyclovir 400 mg tablet 400 mg PO BID #180 tab 02/25/21 04/30/21 04/29/21 Rx calcium carbonate 600 mg (1,500 2 cap PO DAILY cap 03/14/21 04/30/21 Unknown History mg)-vitamin D3 500 unit capsule multivitamin 1 tab PO DAILY 03/14/21 04/30/21 Unknown History zinc 50 mg tablet 100 mg PO DAILY tab 03/14/21 04/30/21 Unknown History methylphenidate HCl 27 mg 27 mg PO QAM 30 Days #30 tab 04/17/21 04/30/21 Unknown Rx tablet,extended release 24 hr methylphenidate HCl 27 mg 27 mg PO QAM 30 Days #30 tab 04/17/21 04/30/21 04/29/21 Rx tablet,extended release 24 hr Azo Daily Probiotic 1 tab PO DAILY 04/30/21 04/30/21 Unknown History Bio 360 Probiotic 1 cap PO DAILY 04/30/21 04/30/21 Unknown History Daily Fiber 2 tab PO DAILY 04/30/21 04/30/21 Unknown History Tincture Of [place] See Rx Instructions .ROUTE .COMPLEX 04/30/21 04/30/21 Unknown History albuterol sulfate 2 puff INHALATION Q4H PRN 04/30/21 04/30/21 Unknown History albuterol sulfate 2.5 mg INHALATION Q4H PRN 04/30/21 04/30/21 Unknown History azithromycin See Rx Instructions .ROUTE .COMPLEX 04/30/21 04/30/21 04/29/21 History dexamethasone 6 mg PO DAILY 04/30/21 04/30/21 04/29/21 History duloxetine 60 mg PO QAM 04/30/21 04/30/21 04/29/21 History fexofenadine 180 mg PO DAILY 04/30/21 04/30/21 Unknown History lysine [L-Lysine] 1,000 mg PO DAILY 04/30/21 04/30/21 Unknown History magnesium 500 mg PO DAILY 04/30/21 04/30/21 Unknown History meloxicam 15 mg PO QAM 04/30/21 04/30/21 04/29/21 History potassium gluconate 1,190 mg PO DAILY 04/30/21 04/30/21 Unknown History Allergies Allergy/AdvReac Type Severity Reaction Status Date / Time hydrocodone AdvReac vomiting Verified 04/30/21 17:24 PFSH Acute PFSH: Medical History (Updated 04/30/21 @ 19:41 by Yari Gaines MD) Depression And possibly ADHD diagnosed in her 30s. She follows up with behavioral health care. Does not have a therapist. GERD (gastroesophageal reflux disease) Since her 20s controlled with medication. 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 Cadet PCOS (polycystic ovarian syndrome) Diagnosed in [address] Jurado [facility] Surgical History History of dilation and curettage (04/24/06) Missed . Performed by Dr. Jurado at [facility] in [place], [place]. History of incision and drainage (06/10/19) Right gluteal abscess. Performed by Dr. Shearer at [facility] History of loop electrical excision procedure (LEEP) (~2001) Family History Father Hypertension Hypercholesteremia Mother Hypertension Hypercholesteremia Thyroid disease Grandfather Diabetes maternal Denies family history of Colon cancer Ovarian cancer Heart disease Breast cancer Uterine cancer Stroke Social History Smoking and tobacco status: never smoked Alcohol intake: never Female Reproductive History: Date of last menstrual period: 07/05/19 Vitals/I&O/Wt Last Vital Signs Temp 99.5 F 04/30/21 15:53 Pulse 106 H 04/30/21 15:53 Resp 20 H 04/30/21 15:53 BP 91/58 04/30/21 15:53 Pulse Ox 91 04/30/21 15:53 Weight last 48 hrs Weight 104.326 kg Physical Exam Narrative: EXAM NARRATIVE: General: Alert oriented x3, patient seen sitting up in bed saturating 94% on room air. HEENT: Normocephalic, atraumatic, EOMI Cardio: Regular rate rhythm, normal S1-S2, no murmurs rubs gallops, Respiratory: Mild rhonchi bilaterally at bases, no wheezes, moderate air entry bilaterally. GI: Abdomen soft, nontender,bowel sounds + Behavior: Appropriate and cooperative Extremities: no edema, no cyanosis Data : 04/30/21 14:50 04/30/21 14:50 A&P Assessment and plan (1) Pneumonia due to 2019-nCoV: Status: Acute (2) COVID-19: Status: Acute (3) GERD (gastroesophageal reflux disease): Status: Acute (4) ADHD: Status: Acute Additional A&P Information #COVID-19 pneumonia COVID-19 test positive in the ER. -Patient will be admitted to the hospital under observation. Currently she is on room air but due to shortness of breath and desaturation on ambulation we will monitor her. We will start dexamethasone 6 mg IV daily Remdesivir for 5 days Procalcitonin 0.[address] on Levaquin empirically. CRP 111. D-dimer normal Zinc, vitamin C, vitamin D We will place patient on DuoNeb every 4 hours as needed We will continue her home medications for ADHD, GERD, herpes. 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
[2021-04-30] MEDS: ascorbic acid 500 mg Tablet 1000 MG PO (18:25)
[2021-04-30] MEDS: remdesivir 200 MG in sodium chloride 0.9% (100 ml) 100 ML 100 MG IV (18:32)
[2021-04-30 18:33] LABS: Influenza A by IFA Negative (Negative); Influenza B by IFA Negative (Negative)
[2021-04-30 18:37] LABS: Procalcitonin 0.56 ng/mL (0-0.5)
--- NOTE | 2021-04-30 19:10 | PC.NURSE ---
Called and gave report to Karl DEWEY. Pt going to room 266.
[2021-04-30] MEDS: enoxaparin 40 mg/0.4 mL Syringe SUBCUT (21:19)
[2021-05-01] VITALS (12 sets, daily range): BP systolic 106–123; BP diastolic 71–84; PULSE 63–104; RESP 16–20; TEMP 36.4–37; O2SAT 88–96
--- NOTE | 2021-05-01 00:54 | PC.RESP ---
Pt's SAT dropped to 88% att, RT placed pt on 2lpm NC, maintaining SAT of 91-92%.
[2021-05-01 05:57] LABS: ABG PCO2 33.3 mmHg (35-45); ABG PH Result 7.49 (7.35-7.45); Base Excess ABG 2.7 mmol/L (-2.0-2.0); Blood Gas Allen Test Pos; Blood Gas Sample Type Arterial; HCO3 ABG 25.6 mmol/L (22-26); PO2 ABG 57.3 mmHg (80.0-100.0)
[2021-05-01 05:58] LABS: Basophils % 0.1 %; Hematocrit 41.9 % (37.0-47.0); Hemoglobin 13.3 g/dL (11.5-15.3); Lymphocytes # 1.2 10^3/uL (0.8-4.8); Lymphocytes % 10.1 %; Mean Corpuscular HGB Conc 31.7 g/dL (30.0-36.0); Mean Corpuscular Hemoglobin 29.6 pg (28.0-34.0); Mean Corpuscular Volume 93.1 fl (81-99); Mean Platelet Volume 9.7 fL (7.4-10.4); Monocytes # 0.6 10^3/uL (0.2-0.9); Neutrophils % 84.3 %; Nucleated Red Blood Cells % 0 %; Platelet Count 229 10^3/cmm (130-400); Red Cell Distribution Width 14.2 % (12.1-15.1); White Blood Count 11.5 10^3/uL (4.0-10.0)
[2021-05-01 05:58] LABS: Blood Gas Sample Site Radial, left; Oxygen Device NC
[2021-05-01 06:21] LABS: Alanine Aminotransferase 28 U/L (0-33); Albumin Level 3.5 g/dL (3.5-5.2); Alkaline Phosphatase 73 IU/L (35-105); Anion Gap 13.5 (5-19); Aspartate Amino Transferase 26 U/L (0-32); Blood Urea Nitrogen 14 mg/dL (6-20); C Reactive Protein 200.5 mg/L (0.0-4.9); Calcium 8.6 mg/dL (8.5-10.5); Carbon Dioxide 25 mmol/L (22-29); Chloride 102 mmol/L (98-107); Creatinine Clr Calc Pharmacy 150.8941; Globulin 3.8 g/dL (1.3-4.6); Glomerular Filtration Rate 111.3 mL/min (90-130); Glucose 125 mg/dL (65-115); Magnesium 2.6 mg/dL (1.7-2.3); Osmolality Calculated 284 mOsm/kg (285-295); Potassium 4.5 mmol/L (3.5-5.1); Sodium 136 mmol/L (136-145); Total Bilirubin 0.2 mg/dL (0.15-1.2); Total Protein 7.3 g/dL (6.6-8.7)
--- NOTE | 2021-05-01 07:00 | XR_ITS ---
WS: [id number] XR chest 1V portable [id number] REASON FOR EXAM: follow up FINDINGS: Bilateral diffuse pulmonary infiltrates. No significant change compared to 04/30/2021. No new findings. XR/XR chest 1V portable [id number] IMPRESSION: Stable abnormal chest.
[2021-05-01] MEDS: benzonatate 100 mg Capsule PO (09:38)
[2021-05-01] MEDS: cholecalciferol (vitamin D3) 1,000 unit Tablet 2000 UNIT PO (09:38)
[2021-05-01] MEDS: ascorbic acid 500 mg Tablet 1000 MG PO ×2 (09:38→18:58)
[2021-05-01] MEDS: zinc gluconate 50 mg Tablet PO (09:39)
[2021-05-01] MEDS: levofloxacin-dextrose 5 % 750 MG/150 ML PREMIX 100 MG IV (09:39)
--- NOTE | 2021-05-01 11:55 | PM.PN ---
Subjective Subjective: Interval history: Seen this morning. Patient states he does not feel well. She does feel slightly better compared to admission however. She also feels her allergies are acting up. Denies any chest pain, abdominal pain. Does endorse shortness of breath on exertion when she gets up to walk. Currently on 2 L oxygen saturating 91%. Vitals/I&O/Wt Last Vital Signs Temp 97.9 F 05/01/21 08:00 Pulse 101 H 05/01/21 10:06 Resp 20 H 05/01/21 10:06 BP 123/84 05/01/21 08:00 Pulse Ox 91 05/01/21 10:06 04/30/21 05/01/21 05/01/21 22:59 06:59 14:59 Intake Total 100 / 100 40 / 140 Balance 100 / 100 40 / 140 Weight last 48 hrs Weight 104.326 kg Weight 104.326 kg Physical Exam Narrative: EXAM NARRATIVE: General: Alert oriented x3, patient seen sitting up in bed saturating 91% on 2 L nasal cannula HEENT: Normocephalic, atraumatic, EOMI Cardio: Regular rate rhythm, normal S1-S2, no murmurs rubs gallops, Respiratory: Mild rhonchi bilaterally at bases, no wheezes, moderate air entry bilaterally. GI: Abdomen soft, nontender,bowel sounds + Behavior: Appropriate and cooperative Extremities: no edema, no cyanosis Data : 05/01/21 05:45 05/01/21 05:45 Micro: Microbiology 04/30/21 17:48 Blood Culture - Preliminary Blood SPECIMEN COLLECTED 04/30/21 17:45 Blood Culture - Preliminary Blood SPECIMEN COLLECTED A&P Assessment and plan (1) Pneumonia due to 2019-nCoV: Status: Acute (2) COVID-19: Status: Acute (3) GERD (gastroesophageal reflux disease): Status: Acute (4) ADHD: Status: Acute Additional A&P Information #COVID-19 pneumonia COVID-19 test positive in the ER. -Patient will be admitted to the hospital under observation. On admission she was on room air but now on 2 L nasal cannula saturating 91%. Influenza negative Continue dexamethasone 6 mg IV daily Remdesivir for 5 days Procalcitonin 0.[address] on Levaquin empirically. CRP 200 D-dimer normal, Zinc, vitamin C, vitamin D We will place patient on DuoNeb every 4 hours as needed Ordered loratadine 10 mg daily for her. We will continue her home medications for ADHD, GERD, herpes. Fluids: Not indicated Electrolytes: Replete as needed Nutrition: Regular diet Activity: As tolerated DVT prophylaxis:lovenox 40 daily Attempted to call patient's mother for an update. Was unable to get a hold of her. Left voicemail. Attestations Medical Necessity Statement*: Requiring 2 L nasal cannula saturating 91%. Requires another 24 to 48 hours in the hospital. Discharge pending clinical course. Time Spent in Patient Care: less than 15 minutes Coding Level of Care Code Acute Strategy Manager for g Fwd Diagnoses Pneumonia due to 2019-nCoV U07.1; J12.82 COVID-19 U07.1 GERD (gastroesophageal reflux disease) K21.9 ADHD F90.9
[2021-05-01] MEDS: loratadine 10 mg Tablet PO (14:38)
[2021-05-01] MEDS: dexamethasone 4 mg/mL INJ 6 MG IVP (17:16)
[2021-05-01] MEDS: remdesivir 100 MG in sodium chloride 0.9% (100 ml) 100 ML IV (18:58)
[2021-05-01] MEDS: enoxaparin 40 mg/0.4 mL Syringe SUBCUT (20:21)
[2021-05-02] VITALS (11 sets, daily range): BP systolic 108–130; BP diastolic 69–85; PULSE 59–122; RESP 17–22; TEMP 36.5–37.1; O2SAT 90–98
[2021-05-02] MEDS: cyclobenzaprine 10 mg Tablet PO (02:08)
[2021-05-02 06:17] LABS: Basophils % 0.2 %; Hematocrit 39.9 % (37.0-47.0); Hemoglobin 13.2 g/dL (11.5-15.3); Lymphocytes # 1.4 10^3/uL (0.8-4.8); Lymphocytes % 24.6 %; Mean Corpuscular HGB Conc 33.1 g/dL (30.0-36.0); Mean Corpuscular Hemoglobin 30.1 pg (28.0-34.0); Mean Corpuscular Volume 90.9 fl (81-99); Mean Platelet Volume 9.7 fL (7.4-10.4); Monocytes # 0.4 10^3/uL (0.2-0.9); Monocytes % 7.8 %; Neutrophils # 3.74 10^3/uL (1.8-7.7); Nucleated Red Blood Cells % 0 %; Platelet Count 282 10^3/cmm (130-400); Red Blood Count 4.39 10^6/uL (4.1-5.3); Red Cell Distribution Width 14.2 % (12.1-15.1); White Blood Count 5.7 10^3/uL (4.0-10.0)
[2021-05-02 06:43] LABS: Anion Gap 16.4 (5-19); Blood Urea Nitrogen 16 mg/dL (6-20); Calcium 9.3 mg/dL (8.5-10.5); Carbon Dioxide 24 mmol/L (22-29); Chloride 101 mmol/L (98-107); Creatinine Clr Calc Pharmacy 150.8941; Glomerular Filtration Rate 111.3 mL/min (90-130); Glucose 118 mg/dL (65-115); Osmolality Calculated 286 mOsm/kg (285-295); Potassium 4.4 mmol/L (3.5-5.1); Sodium 137 mmol/L (136-145)
--- NOTE | 2021-05-02 08:00 | XR_ITS ---
WS: [id number] XR chest 1V portable [id number] REASON FOR EXAM: Follow up FINDINGS: The chest is unchanged compared to 05/01/2021. Bilateral interstitial and patchy groundglass infiltrates. No new abnormality. XR/XR chest 1V portable [id number] IMPRESSION: Stable abnormal chest.
[2021-05-02] MEDS: ascorbic acid 500 mg Tablet 1000 MG PO ×2 (09:28→17:28)
[2021-05-02] MEDS: levofloxacin-dextrose 5 % 750 MG/150 ML PREMIX 100 MG IV (09:28)
[2021-05-02] MEDS: cholecalciferol (vitamin D3) 1,000 unit Tablet 2000 UNIT PO (09:28)
[2021-05-02] MEDS: zinc gluconate 50 mg Tablet PO (09:28)
[2021-05-02] MEDS: loratadine 10 mg Tablet PO (09:29)
--- NOTE | 2021-05-02 12:40 | P.PN_ITS ---
Subjective Subjective: Interval history: Seen and examined this morning. Patient feels a lot better compared to admission however not back to baseline. She still requiring nasal cannula oxygen and saturating 90% on 2 L. When she ambulates she desaturates a little bit. Otherwise she has no complaints today. Vitals/I&O/Wt Last Vital Signs Temp 98.0 F 05/02/21 08:00 Pulse 122 H 05/02/21 10:36 Resp 22 H 05/02/21 10:36 BP 108/73 05/02/21 08:00 Pulse Ox 91 05/02/21 10:36 05/01/21 05/02/21 05/02/21 22:59 06:59 14:59 Intake Total 1960 / 2350 500 / 2850 150 / 150 Output Total 600 / 600 Balance 1960 / 2350 -100 / 2250 150 / 150 Weight last 48 hrs Weight 104.326 kg Physical Exam Narrative: EXAM NARRATIVE: General: Alert oriented x3, patient seen sitting up in bed saturating 90% on 2 L nasal cannula HEENT: Normocephalic, atraumatic, EOMI Cardio: Regular rate rhythm, normal S1-S2, no murmurs rubs gallops, Respiratory: Very mild rhonchi bilaterally at bases, no wheezes, moderate air entry bilaterally. Pulmonary exam improved compared to yesterday. GI: Abdomen soft, nontender,bowel sounds + Behavior: Appropriate and cooperative Extremities: no edema, no cyanosis Data : 05/02/21 05:19 05/02/21 05:19 Micro: Microbiology 05/02/21 00:27 Bacterial Antigens - Final Urine,Voided 04/30/21 17:48 Blood Culture - Preliminary Blood NEGATIVE TO DATE 04/30/21 17:45 Blood Culture - Preliminary Blood NEGATIVE TO DATE 04/30/21 17:37 MRSA Culture - Final Nose A&P Assessment and plan (1) Pneumonia due to 2019-nCoV: Status: Acute (2) COVID-19: Status: Acute (3) GERD (gastroesophageal reflux disease): Status: Acute (4) ADHD: Status: Acute Additional A&P Information #COVID-19 pneumonia COVID-19 test positive in the ER. -Patient will be admitted to the hospital under observation. On admission she was on room air but now on 2 L nasal cannula saturating 91%. Influenza negative Continue dexamethasone 6 mg IV daily Remdesivir for 5 days Procalcitonin 0.56 borderline. Continue Levaquin to complete 5 days. I started baricitinib yesterday for the patient as well but will continue for now. CRP 200 D-dimer normal, Zinc, vitamin C, vitamin D We will place patient on DuoNeb every 4 hours as needed Ordered loratadine 10 mg daily for her. We will continue her home medications for ADHD, GERD, herpes. Fluids: Not indicated Electrolytes: Replete as needed Nutrition: Regular diet Activity: As tolerated DVT prophylaxis:lovenox 40 daily Updated mother on the phone yesterday. Attestations Medical Necessity Statement*: Possible discharge in next 24 hours. 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
[2021-05-02] MEDS: dexamethasone 4 mg/mL INJ 6 MG IVP (17:19)
[2021-05-02] MEDS: remdesivir 100 MG in sodium chloride 0.9% (100 ml) 100 ML IV (17:21)
[2021-05-02] MEDS: enoxaparin 40 mg/0.4 mL Syringe SUBCUT (19:44)
[2021-05-03] VITALS (8 sets, daily range): BP systolic 95–126; BP diastolic 61–81; PULSE 76–101; RESP 16–20; TEMP 36.4–36.9; O2SAT 86–97
[2021-05-03] MEDS: calcium carbonate 500 mg Chew Tablet PO (00:26)
[2021-05-03] MEDS: cyclobenzaprine 10 mg Tablet PO (00:26)
[2021-05-03 06:33] LABS: Anion Gap 15.4 (5-19); Blood Urea Nitrogen 14 mg/dL (6-20); Calcium 9.8 mg/dL (8.5-10.5); Carbon Dioxide 25 mmol/L (22-29); Chloride 98 mmol/L (98-107); Creatinine Clr Calc Pharmacy 150.8941; Glomerular Filtration Rate 111.3 mL/min (90-130); Glucose 120 mg/dL (65-115); Osmolality Calculated 280 mOsm/kg (285-295); Potassium 4.4 mmol/L (3.5-5.1); Sodium 134 mmol/L (136-145)
[2021-05-03] MEDS: ascorbic acid 500 mg Tablet 1000 MG PO (10:03)
[2021-05-03] MEDS: cholecalciferol (vitamin D3) 1,000 unit Tablet 2000 UNIT PO (10:03)
[2021-05-03] MEDS: loratadine 10 mg Tablet PO (10:04)
[2021-05-03] MEDS: zinc gluconate 50 mg Tablet PO (10:04)
[2021-05-03] MEDS: levofloxacin-dextrose 5 % 750 MG/150 ML PREMIX 100 MG IV (10:04)
--- NOTE | 2021-05-03 12:32 | PM.DCS ---
Discharge Providers Date of Admission: 05/01/21 12:00 Date of Discharge: May 03, 2021 Attending Provider at Admission: Yari Gaines MD Attending Provider at Discharge: Yari Gaines MD Primary Care Provider: Melany Cadet DO Diagnoses at Discharge Discharge Diagnosis (1) Pneumonia due to 2019-nCoV: Status: Acute (2) COVID-19: Status: Acute (3) GERD (gastroesophageal reflux disease): Status: Acute Permanent problem details: Since her 20s controlled with medication. (4) ADHD: Status: Acute Reason for Visit Reason for Visit: Fever, Weakness, Fatique, Hospital Course Hospital Course Patient is a 40-year-old female with past medical history of ADHD, depression, GERD, herpes genitalia who presented to the ER today for Covid symptoms. Of note patient was seen in the ER yesterday and diagnosed with mild viral pneumonia consistent with her Covid diagnosis. Patient reports having a fever of 102 yesterday and that she almost passed out when she got up this morning. She states she checked her oxygen at home it was in the mid to upper 80s. He states she feels weak. When seen by medicine patient states that her primary care doctor is Dr. Cadet and she has been short of breath when walking around. He denies chest pain, abdominal pain, nausea, vomiting, diarrhea, numbness, headache. She is aware that her Covid test is positive. She states she was given azithromycin and dexamethasone 6 mg orally for 5 days to take as an outpatient and she has 2 tablets left. Denies smoking, does drink alcohol socially. Hospital course Patient was admitted with a diagnosis of COVID-19. She received dexamethasone remdesivir and parasitic type while she was inpatient. Procalcitonin was borderline elevated and therefore she was placed on Levaquin. I will send her home with Levaquin to complete 5 days total. D-dimer was normal. I have encouraged her to use incentive spirometry and Acapella. She has improved compared to admission but not back to baseline yet. She does require 2 L of oxygen as home oxygen evaluation was done. I have updated her mother on the phone as well at time of discharge. Patient in agreement with going home today. She states she feels better but does still have a little bit of shortness of breath when she ambulates. I have encouraged her to follow-up with her primary care physician within a week or 2. She also needs to complete 21 days of quarantine from symptom onset. She'll be sent home on Tessalon Perles, levofloxacin and prednisone. Physical Exam Narrative: EXAM NARRATIVE: General: Alert oriented x3, patient seen sitting up in recliner today saturating 90% on 2 L nasal cannula. She appears very pleasant and happy today. HEENT: Normocephalic, atraumatic, EOMI Cardio: Regular rate rhythm, normal S1-S2, no murmurs rubs gallops, Respiratory: Very mild rhonchi bilaterally at bases, no wheezes, moderate air entry bilaterally. Pulmonary exam significantly improved compared to admission. GI: Abdomen soft, nontender,bowel sounds + Behavior: Appropriate and cooperative Extremities: no edema, no cyanosis Discharge Data Data Completed and Pending: Completed Studies During Hospitalization Category Date Time Status XR chest 1V pretty ble [id number] Routine Exams 05/01/21 07:00 Completed XR chest 1V pretty ble [id number] Routine Exams 05/02/21 08:00 Completed XR chest 1V pretty ble [id number] Urgent Exams 04/30/21 12:05 Completed Pending at discharge Category Date Time Status Blood Culture Sta t Lab 04/30/21 17:48 Results Interleukin 6 (IL -6) Serum AM LABS Lab 05/02/21 05:19 Received Sputum Culture an d Gram Stain Stat Lab 04/30/21 16:35 Uncollected Labs from last 24 hours 05/03/21 05:49 Sodium 134 L Potassium 4.4 Chloride 98 Carbon Dioxide 25 Anion Gap 15.4 BUN 14 Creatinine 0.6 GFR Calculation 111.3 Glucose 120 H Calculated Osmolal ity 280 L Calcium 9.8 Vitals: Last Vital Signs Temp 98.5 F 05/03/21 11:43 Pulse 98 05/03/21 11:43 Resp 16 05/03/21 11:43 BP 110/75 05/03/21 11:43 Pulse Ox 97 05/03/21 11:43 Discharge Plan Discharge Patient Disposition: Home Condition: Stable Prescriptions: New benzonatate 100 mg Capsule 100 mg PO TID PRN (Reason: Cough) 14 Days Qty: 20 RF: 0 levofloxacin 750 mg tablet 750 mg PO DAILY 2 Days Qty: 2 RF: 0 prednisone 20 mg tablet 40 mg PO DAILY 2 Days Qty: 4 RF: 0 Continued omeprazole 20 mg capsule,delayed release(DR/EC) 20 mg PO DAILY RF: 0 zinc 50 mg tablet 100 mg PO DAILY RF: 0 calcium carbonate-vitamin D3 [Calcium 600 with Vitamin D3] 600 mg(1,500mg) -500 unit capsule 2 cap PO DAILY RF: 0 multivitamin Tablet 1 tab PO DAILY RF: 0 docusate sodium [Stool Softener] 100 mg capsule 200 mg PO DAILY RF: 0 methylphenidate HCl [Concerta] 27 mg tablet extended release 24hr 27 mg PO QAM 30 Days Qty: 30 RF: 0 acyclovir 400 mg tablet 400 mg PO BID Qty: 180 RF: 1 Azo Daily Probiotic 1 tab PO DAILY RF: 0 albuterol sulfate 2.5 mg /3 mL (0.083 %) solution for nebulization 2.5 mg inhalation Q4H PRN (Reason: Shortness Of Breath) RF: 0 fexofenadine 180 mg Tablet 180 mg PO DAILY RF: 0 albuterol sulfate 90 mcg/actuation HFA aerosol inhaler 2 puff INHALATION Q4H PRN (Reason: Shortness Of Breath) RF: 0 Bio 360 Probiotic 1 cap PO DAILY RF: 0 Daily Fiber 2 tab PO DAILY RF: 0 meloxicam 15 mg tablet 15 mg PO QAM RF: 0 duloxetine 30 mg capsule,delayed release(DR/EC) 60 mg PO QAM RF: 0 Held methylphenidate HCl [Concerta] 27 mg tablet extended release 24hr 27 mg PO QAM 30 Days Qty: 30 RF: 0 Hold Instructions: duplicate order magnesium 500 mg Tablet 500 mg PO DAILY RF: 0 Hold Instructions: see pcp lysine 1,000 mg Tablet 1,000 mg PO DAILY RF: 0 Hold Instructions: see pcp potassium gluconate 595 mg (99 mg) Tablet 1,190 mg PO DAILY RF: 0 Hold Instructions: see pcp Tincture [place] See Rx Instructions .ROUTE .COMPLEX RF: 0 Hold Instructions: see pcp Discontinued azithromycin 250 mg tablet See Rx Instructions .ROUTE .COMPLEX RF: 0 dexamethasone 6 mg tablet 6 mg PO DAILY RF: 0 Discharge Orders: Discharge Order (Routine); Ordered 05/03/21 Ordered By: Yari Gaines Other Ambulatory Orders: DME: Oxygen (Order) Location: None Selected Ordered By: Yari Gaines Referrals: Melany Cadet DO [Primary Care Provider] - 05/14/21 8:30 am Discharge Diet: Regular Discharge Activity: Increase activity as tolerated and Oxygen as instructed Patient Instructions: Benzonatate (By mouth), Prednisone (By mouth), Levofloxacin (By mouth), Viral Pneumonia (GEN), Using Oxygen at Home (GEN), Opioid Safety, Pneumonia Stoplight Discharge Attestations Time Spent in Discharge Care*: less than 30 min Quality Metrics Clinical Quality Measures During this hospital stay, did patient experience: None Coding Level of Care Code Acute g [facility] note Diagnoses Pneumonia due to 2019-nCoV U07.1; J12.82 COVID-19 U07.1 GERD (gastroesophageal reflux disease) K21.9 ADHD F90.9
[2021-05-10 01:58] LABS: Interleukin 6 (IL-6) Serum 9.08 pg/mL (<5.00)
== END 2021-05-03 16:15 | disposition home or self-care (01) | DRG 177 ==
LOC: ER 16:45 → MEDSURG 18:22
PROVIDERS: Physician Assistant; Admitting Provider Internal Medicine; Emergency Provider Family Medicine; PCP Family Medicine; Visit Provider Internal Medicine
DX: U07.1 COVID-19 (principal); J12.82 Pneumonia due to coronavirus disease 2019; K21.9 Gastro-esophageal reflux disease without esophagitis; F90.9 Attention-deficit hyperactivity disorder, unspecified type; E28.2 Polycystic ovarian syndrome
CPT/HCPCS: 36415; 36600; 71045; 80048; 80053; 82728; 82803; 83520; 83605; 83735; 83880; 84145; 84703; 85025; 85378; 85384; 85610; 85730; 86140; 86403; 87040; 87641; 87804; 93005; 94664; 94760; 94762; 96365; 96372; 96375; 96376; 99285; G0378; J1100; J1650; J1956

== ENCOUNTER → 2021-05-21 09:24 | Outpatient (BNVA) | payer BC, SELFPAY | PROVIDERS: PCP Family Medicine; Visit Provider Family Medicine | DX: U07.1 COVID-19 (principal); J12.82 Pneumonia due to coronavirus disease 2019 | CPT/HCPCS: 87635 ==

== ENCOUNTER 2021-12-31 10:22 | Outpatient (CLI) | payer BC, SELFPAY ==
--- NOTE | 2021-12-31 10:30 | MM_ITS ---
WS: [id number] SCREENING DIGITAL BREAST TOMOSYNTHESIS MAMMOGRAM WITH CAD HISTORY: SCREEN COMPARISON: None available. Bilateral CC and MLO with tomosynthesis views submitted. Synthetic mammography reviewed. Computer aid ed detection analyzed. Breast composition: The breasts are almost entirely fatty. No suspicious masses, microcalcifications or architectural distortion. MM/[place] [id number] IMPRESSION: BI-RADS: 1-Negative FOLLOW UP: 1 Year Follow-up
== END 2021-12-31 10:23 | disposition home or self-care (01) ==
LOC: RAD 10:25
PROVIDERS: PCP Family Medicine; Visit Provider Family Medicine
DX: Z12.31 Encounter for screening mammogram for malignant neoplasm of breast (principal)
CPT/HCPCS: 77063; 77067

== ENCOUNTER → 2023-01-02 17:41 | Outpatient (BNVA) | payer BC, SELFPAY | PROVIDERS: PCP Family Medicine; Visit Provider Emergency Medicine | DX: S90.31XA Contusion of right foot, initial encounter (principal); W22.8XXA Striking against or struck by other objects, initial encounter | CPT/HCPCS: 73630 ==

== ENCOUNTER → 2023-02-05 12:15 | Outpatient (BNVA) | payer BC, SELFPAY | PROVIDERS: PCP Family Medicine; Visit Provider Family Medicine | DX: A60.00 Herpesviral infection of urogenital system, unspecified (principal); Z13.6 Encounter for screening for cardiovascular disorders; A60.04 Herpesviral vulvovaginitis; G47.10 Hypersomnia, unspecified | CPT/HCPCS: 80053; 80061; 85025 ==

== ENCOUNTER 2023-03-10 12:00 | Outpatient (CLI) | payer BC, SELFPAY | END 2023-03-10 12:01 | disposition home or self-care (01) | LOC: SLEEP 03-11 08:10 | PROVIDERS: PCP Family Medicine; Visit Provider Family Medicine | DX: G47.33 Obstructive sleep apnea (adult) (pediatric) (principal) | CPT/HCPCS: G0399 ==

== ENCOUNTER → 2023-05-05 17:58 | Outpatient (BNVA) | payer BC, SELFPAY | PROVIDERS: PCP Family Medicine; Visit Provider Registered Nurse Neonatal Intensive Care | DX: J02.9 Acute pharyngitis, unspecified (principal) | CPT/HCPCS: 87880 ==

== ENCOUNTER 2023-05-19 13:34 | Outpatient (CLI) | payer BC, SELFPAY ==
--- NOTE | 2023-05-19 13:46 | XRR_ITS ---
PROCEDURE INFORMATION: Exam: XR Chest Exam date and time: 05/19/2023 1:55 PM Age: 43 years old Clinical indication: Cough and shortness of breath; Additional info: Cough, SOB. No history of trauma or recent surgery is provided. TECHNIQUE: Imaging protocol: Radiologic exam of the chest. 2image(s) are provided. Views: 2 views. COMPARISON: 1. CR XR chest 1V portable [id number] 05/02/2021 6:24 AM 2. CR XR chest 1V portable [id number] 04/29/2021 1:37 PM FINDINGS: Lungs: No lobar consolidation is appreciated. There is minimal subsegmental atelectasis versus post inflammatory scarring demonstrated. There is improved lung volume and aeration. This includes some interstitial and ground-glass reticulation with lower lung zone distribution predominance. Pleural spaces: No pneumothorax or significant pleural effusion is appreciated. Heart/Mediastinum: The cardiomediastinal silhouette is within normal. No cardiac decompensation is appreciated. Diaphragm: There is slight asymmetric right hemidiaphragm elevation. Bones/joints: Osseous alignment is maintained.No interval displaced fracture or dislocation is appreciated. There is some mild thoracic spondylosis similar overall. Soft tissues: No radiopaque foreign body or subcutaneous emphysema is appreciated. Other findings: No other significant interval changes are appreciated. XR/XR chest 2V* [id number] IMPRESSION: There is improved aeration overall as compared to the previous studies with no lobar consolidation or cardiac decompensation appreciated. There is however some subtle ground-glass and reticular attenuation and could represent some residual underlying scarring although some early or superimposed interstitial peribronchial inflammation could also present in this fashion.
== END 2023-05-19 13:35 | disposition home or self-care (01) ==
PROVIDERS: PCP Family Medicine; Visit Provider Family Medicine
DX: R05.9 Cough, unspecified (principal)
CPT/HCPCS: 71046

== ENCOUNTER 2025-02-22 12:22 | Outpatient (CLI) | payer BC, SELFPAY ==
--- NOTE | 2025-02-22 12:29 | MM_ITS ---
WS: [id number] BILATERAL 3D TOMOSYNTHESIS DIGITAL SCREENING MAMMOGRAM WITH CAD CLINICAL INFORMATION: SCREENING HISTORY: Screening mammogram. No current complaints. COMPARISON: 2021 TECHNIQUE: Bilateral CC and MLO views. FINDINGS: Fatty-replaced breasts bilaterally. No suspicious focal mass, asymmetry, calcifications, or architectural distortion. No evidence of malignancy. MM/MM scr BI tomosynthesis [id number] IMPRESSION: DENSITY: The breasts are almost entirely fatty. BI-RADS: 1 - Negative. FOLLOW UP: 1 Year Follow-up Recommend return to annual screening mammography.
== END 2025-02-22 12:23 | disposition home or self-care (01) ==
LOC: RAD 12:24
PROVIDERS: PCP Family Medicine; Visit Provider Physician Assistant
DX: Z12.31 Encounter for screening mammogram for malignant neoplasm of breast (principal); R92.313 Mammographic fatty tissue density, bilateral breasts; N91.5 Oligomenorrhea, unspecified
CPT/HCPCS: 77063; 77067; 82670; 83001; 84146; 84402; 84403; 84443; 88305; 88342

== ENCOUNTER → 2025-03-08 11:23 | Outpatient (BNVA) | payer BC, SELFPAY | PROVIDERS: PCP Family Medicine; Visit Provider Obstetrics & Gynecology | DX: N93.9 Abnormal uterine and vaginal bleeding, unspecified (principal); Q51.3 Bicornate uterus; Q21.22 Transitional atrioventricular septal defect; N85.8 Other specified noninflammatory disorders of uterus | CPT/HCPCS: 76830 ==